=== PATIENT | female | born 1985 | race Caucasian/White ===

== ENCOUNTER 2024-04-04 09:17 | Day surgery (SDC) | payer OTHER, SELFPAY ==
[2024-01-05 10:12] VITALS: BMI 23.0
[2024-02-06 14:16] VITALS: BMI 23.5
--- NOTE | 2024-04-04 06:57 | P.PNAN_ITS ---
Anes - Initial Pre Proc Eval Procedure: Operation Date: 04/04/24 12:00 Proposed Procedures p Diagnostic Colonoscopy - Jerad Reyna MD Date/Time: 04/04/24 06:57 Surgeon: Jerad Reyna MD Pre Op Diagnosis: Family History of Colon Cancer Patient Data Age: 38 Gender: F Height: 1.68 m Weight: 66 kg Allergies Allergy/AdvReac Type Severity Reaction Status Date / Time No Known Allergies Allergy Verified 04/04/24 11:08 Home Medications ?Medication ?Instructions ?Recorded ?Confirmed ?Type bupropion HCl 300 mg 24 hr tablet, 300 mg PO DAILY 02/06/24 04/04/24 History extended release desvenlafaxine succinate 100 mg 100 mg PO DAILY 02/06/24 04/04/24 History tablet,extended release 24 hr desvenlafaxine succinate 50 mg 50 mg PO DAILY 02/06/24 04/04/24 History tablet,extended release 24 hr norethindrone 1 mg-e. estradiol 20 1 tablet PO DAILY 02/06/24 04/04/24 History mcg (24)-iron 75 mg (4) chew tablet (Yuliya 24 Fe) Patient hx anesthesia problems: none Family hx anesthesia problems: none Results Review: All pre-operative results and documents have been reviewed as part of the pre- operative evaluation. [facility] Past Medical History Medical History (Updated 04/04/24 @ 11:24 by Jerad Reyna MD) ADHD Anxiety Family History Family History (Updated 07/26/16 @ 20:14 by DOCTOR UNKNOWN) Sibling Family history of gynecological problem Mother Family history of cardiovascular disease Father Carcinoma of colon Social History Social History Smoking status: Never smoker Alcohol intake: current Substance use: never Substance use type: does not use Living arrangements: with friend(s) Spiritual care concerns: No Anes - Eval Final PreProcedure Day of Procedure 04/04/24 06:57 Patient weight: normal Heart: regular rate and rhythm Lungs: clear to auscultation and normal air movement Airway: Mallampati scale class II Neurological: alert and oriented Last oral intake: >/= 8 hours ASA classification: II Emergent: no Anesthetic plan: proceed Anesthesia type and monitoring: general GIVS and standard monitoring Results Review: All pre-operative results and documents have been reviewed as part of the pre- operative evaluation. Informed Consent: The patient's anesthetic plan and its attendant risks and benefits were discussed with the patient/family/POA. Questions were solicited and answers provided to the satisfaction of the patient/family/POA.
[2024-04-04] MEDS: LACTATED RINGERS 1,000 ML 150 ML IV CONT (11:06)
[2024-04-04 11:09] VITALS: BP 131/96; PULSE 80; RESP 16; TEMP 37.2; O2SAT 100
--- NOTE | 2024-04-04 11:22 | PM.HPGS ---
History of Present Illness History of Present Illness Consent: Risks, benefits, and alternatives have been discussed and questions answered. Patient agrees to proceed with procedure. Chief complaint: Family History of Colon Cancer Narrative: Elke Taylor is a 38 year old female presents for colonoscopy. Patient may history is significant that her father and paternal grandmother both have had colon cancer. Patient reports that her own weight appetite and bowel movement is normal. She denies abdominal pain. Patient has had no bleeding. Previous colonoscopy 5 years ago was unremarkable. Review of Systems Review of Systems: All systems reviewed & are unremarkable except as noted in HPI and below PMFSH Past Medical History Medical History (Updated 04/04/24 @ 11:24 by Jerad Reyna MD) ADHD Anxiety Family History Family History (Updated 07/26/16 @ 20:14 by DOCTOR UNKNOWN) Sibling Family history of gynecological problem Mother Family history of cardiovascular disease Father Carcinoma of colon Social History Social History Smoking status: Never smoker Alcohol intake: current Substance use: never Substance use type: does not use Living arrangements: with friend(s) Spiritual care concerns: No Meds Home Medications and Allergies Home Medications ?Medication ?Instructions ?Recorded ?Confirmed ?Type bupropion HCl 300 mg 24 hr tablet, 300 mg PO DAILY 02/06/24 04/04/24 History extended release desvenlafaxine succinate 100 mg 100 mg PO DAILY 02/06/24 04/04/24 History tablet,extended release 24 hr desvenlafaxine succinate 50 mg 50 mg PO DAILY 02/06/24 04/04/24 History tablet,extended release 24 hr norethindrone 1 mg-e. estradiol 20 1 tablet PO DAILY 02/06/24 04/04/24 History mcg (24)-iron 75 mg (4) chew tablet (Yuliya 24 Fe) Allergies Allergy/AdvReac Type Severity Reaction Status Date / Time No Known Allergies Allergy Verified 04/04/24 11:08 Vital Signs Vital Signs - 24 hr 04/04/24 11:09 Temperature 99.0 F Pulse Rate 80 Respiratory Rate 16 Blood Pressure 131/96 H Pulse Oximetry 100 Oxygen Delivery Room Air Exam Narrative: Physical exam reveals patient to be alert. Vital signs stable. HEENT exam is unremarkable. Patient is anicteric. Lungs are clear to auscultation and percussion. Heart is without murmur or extra sounds. Abdomen bowel sounds are present soft nontender with no organomegaly. Digital external rectal exam normal. Assessment and Plan Assessment and plan (1) Family history of colon cancer in father: Code(s): Z80.0 - Family history of malignant neoplasm of digestive organs Status: Acute Assessment and Plan: Patient's father and paternal grandmother both had colon cancer. Plan for surveillance colonoscopy at 5 year intervals.
[2024-04-04 12:38] VITALS: BP 127/89; PULSE 88; RESP 18; O2SAT 100
--- NOTE | 2024-04-04 12:46 | WPDANESPN ---
Anes - Prog Note Post-Op Date/Time: 04/04/24 12:46 Cardiovascular status: normal Respiratory status: normal Airway patency: baseline Mental status: baseline Post-Op hydration status: normal Vital Signs: Last Vital Signs Temp 37.2 C 04/04/24 11:09 Pulse 88 04/04/24 12:38 Resp 18 04/04/24 12:38 BP 127/89 04/04/24 12:38 Pulse Ox 100 04/04/24 12:38 O2 Del Method Room Air 04/04/24 12:38 Pain Score (VAS): 0 I/O: Intake & Output 04/03/24 04/04/24 04/04/24 23:59 07:59 15:59 Intake Total 400 Balance 400 Post-procedural complaints: none Patient Feedback: Patient satisfied with anesthetic care. Other Findings: Patient vital signs back to baseline. Patient denies nausea and vomiting. Patient's pain under control. Patient OK for discharge.
[2024-04-04 12:48] VITALS: BP 131/78; PULSE 78; RESP 18; O2SAT 100
[2024-04-04 12:58] VITALS: BP 137/94; PULSE 75; RESP 18; O2SAT 100
== END 2024-04-04 13:10 | disposition home or self-care (01) ==
PROVIDERS: Visit Provider Internal Medicine Gastroenterology
PROC: 0DJD8ZZ Inspection of Lower Intestinal Tract, Via Natural or Artificial Opening Endoscopic (ICD-10-PCS; CPT 45378; principal; 2024-04-04 12:00)
DX: Z80.0 Family history of malignant neoplasm of digestive organs (principal)
CPT/HCPCS: 45378